=== PATIENT | male | born 1965 | race Caucasian/White ===

== ENCOUNTER 2025-02-16 18:30 | Inpatient (IN) | payer SELFPAY ==
[~2025-02-16] VITALS: Ht 193 cm; Wt 118.5 kg
[2025-02-16 18:33] VITALS: O2SAT 98
[2025-02-16 19:17] LABS: BASOPHILS % 0.7 % (0.0-2.0); EOSINOPHILS % 3.3 % (0.0-5.0); HEMATOCRIT. 37.9 % (42.0-52.0); HEMOGLOBIN. 12.9 g/dL (14.0-18.0); LYMPHOCYTES % 17.9 % (20.0-50.0); MEAN PLATELET VOLUME 8.9 fl (7.4-10.4); MONOCYTES % 6.3 % (2.0-8.0); NEUTROPHILS % 71.8 % (40.0-76.0); PLATELET 220 x1000/uL (130-400); RED BLOOD CELL COUNT 4.20 mill/uL (4.7-6.1); RED CELL DISTRIBUTION WIDTH 13.3 % (11.6-14.6)
[2025-02-16 19:32] LABS: CREATININE 0.9 mg/dL (0.6-1.3)
[2025-02-16 19:33] LABS: INR 1.0; UREA NITROGEN BLOOD 26 mg/dL (9-23)
[2025-02-16 19:34] LABS: ASPARTATE AMINOTRANSFERASE 30 IU/L (<34)
[2025-02-16 19:35] LABS: BILIRUBIN DIRECT 0.1 mg/dL (<=3.0); BILIRUBIN TOTAL 0.4 mg/dL (0.1-1.0); PROTEIN TOTAL 6.7 g/dL (6.0-8.3)
[2025-02-16 19:44] LABS: TROPONIN I HIGH SENSITIVITY 100 ng/L (3.0-53)
[2025-02-16] MEDS: CLOPIDOGREL 75MG TABLET PO ONE (20:35)
[2025-02-17] MEDS ORDERED: ACETAMINOPHEN 325MG TABLET PO PRN ×2 (00:15)
[2025-02-17] MEDS ORDERED: ONDANSETRON HCL 4MG/2ML INJ IV PRN (00:15)
[2025-02-17] MEDS ORDERED: CLONIDINE 0.1MG TABLET PO PRN (00:15)
[2025-02-17] MEDS ORDERED: DIPHENHYDRAMINE 50MG/ML VIAL IV PRN (00:15)
[2025-02-17] MEDS ORDERED: ZOLPIDEM TARTRATE 5MG TABLET PO PRN (00:15)
[2025-02-17 00:33] VITALS: BP 124/68; PULSE 72; RESP 18; TEMP 36.696
[2025-02-17] MEDS: SODIUM CHLORIDE 0.9% 3ML FLUSH IVF SCH (07:10)
[2025-02-17 08:00] VITALS: BP 135/85; PULSE 88; RESP 20; TEMP 36.1; O2SAT 98
[2025-02-17 08:19] LABS: TROPONIN I HIGH SENSITIVITY 5542 ng/L (3.0-53)
[2025-02-17] MEDS: CLOPIDOGREL 75MG TABLET PO SCH (08:26)
[2025-02-17] MEDS: AMLODIPINE 5MG TABLET PO SCH (08:27)
[2025-02-17] MEDS: ASPIRIN 81MG EC TABLET PO SCH (08:27)
[2025-02-17] MEDS ORDERED: [UNRECOGNIZED DRUG - OTHER] IM ONE (09:00)
[2025-02-17] MEDS: ENOXAPARIN 120MG/0.8ML SYR SUBCUT SCH (11:55)
[2025-02-17 12:00] VITALS: BP 131/81; PULSE 71; RESP 18; TEMP 36.2; O2SAT 97
[2025-02-17 12:41] LABS: TROPONIN I HIGH SENSITIVITY 3345 ng/L (3.0-53)
[2025-02-17 16:00] VITALS: BP 122/78; PULSE 79; RESP 17; TEMP 36.7; O2SAT 98
[2025-02-17 16:46] LABS: TROPONIN I HIGH SENSITIVITY 2703 ng/L (3.0-53)
[2025-02-17 20:00] VITALS: BP 147/92; PULSE 105; RESP 19; TEMP 36.6; O2SAT 96
[2025-02-18 00:02] VITALS: BP 136/92; PULSE 94; RESP 20; TEMP 36.4; O2SAT 95
[2025-02-18 04:00] VITALS: BP 133/91; PULSE 107; RESP 19; TEMP 36.8; O2SAT 93
[2025-02-18 08:00] VITALS: BP 133/89; PULSE 91; RESP 18; TEMP 36.1; O2SAT 95
[2025-02-18 08:03] LABS: TRIGLYCERIDE 308.0 mg/dL (0-150)
[2025-02-18 08:04] LABS: LDL CHOLESTEROL 113.0 mg/dL (5-100)
[2025-02-18] MEDS ORDERED: VERAPAMIL HCL 2.5 MG/1 ML 2ML VIAL IV ONE (08:18)
[2025-02-18] MEDS ORDERED: LIDOCAINE HCL 1% 20ML VIAL ONE (08:18)
[2025-02-18] MEDS ORDERED: IODIXANOL 320MG/ML 100 ML BOTTLE IV ONE (08:19)
[2025-02-18] MEDS ORDERED: DIPHENHYDRAMINE 50MG/ML VIAL ONE (08:52)
[2025-02-18] MEDS ORDERED: MIDAZOLAM HCL 2 MG/2 ML VIAL ONE (08:53)
[2025-02-18] MEDS ORDERED: FENTANYL CITRATE/PF 50MCG/ML 2ML VIAL ONE (08:53)
[2025-02-18] MEDS ORDERED: HEPARIN 1000 UNITS/ML 10ML ONE (08:55)
[2025-02-18] MEDS ORDERED: EPINEPHRINE 0.1MG/ML (1:10,000) 10ML SYR ONE (09:01)
[2025-02-18] MEDS ORDERED: ATROPINE SULFATE 1MG/10ML SYR ONE (09:02)
[2025-02-18] MEDS ORDERED: ATROPINE SULFATE 1MG/10ML SYR IV PRN (10:30)
[2025-02-18] MEDS ORDERED: ACETAMINOPHEN 325MG TABLET PO PRN (10:30)
[2025-02-18 12:00] VITALS: BP 116/83; PULSE 105; RESP 18; TEMP 36.1; O2SAT 100
[2025-02-18] MEDS: METOPROLOL SUCCINATE 25MG ER TABLET PO SCH (12:27)
[2025-02-18 16:00] VITALS: BP 120/84; PULSE 98; RESP 18; TEMP 36.2; O2SAT 97
[2025-02-18 20:00] VITALS: BP_SYST 110; BP_SYST 115; BP_DIAS 70; BP_DIAS 74; PULSE 60; PULSE 94; RESP 18; TEMP 36.4; TEMP 36.6; O2SAT 100; O2SAT 99
[2025-02-19] VITALS: BP 115/70; PULSE 97; RESP 18; TEMP 36.4; O2SAT 99
[2025-02-19 04:00] VITALS: BP 113/70; PULSE 91; RESP 18; TEMP 36.4; O2SAT 99
[2025-02-19 08:00] VITALS: BP 126/78; PULSE 98; RESP 18; TEMP 36.5; O2SAT 97
[2025-02-19 08:06] LABS: BASOPHILS % 0.7 % (0.0-2.0); EOSINOPHILS % 3.2 % (0.0-5.0); HEMATOCRIT. 40.9 % (42.0-52.0); HEMOGLOBIN. 14.0 g/dL (14.0-18.0); LYMPHOCYTES % 17.8 % (20.0-50.0); MEAN PLATELET VOLUME 9.1 fl (7.4-10.4); MONOCYTES % 7.5 % (2.0-8.0); NEUTROPHILS % 70.8 % (40.0-76.0); PLATELET 232 x1000/uL (130-400); RED BLOOD CELL COUNT 4.51 mill/uL (4.7-6.1); RED CELL DISTRIBUTION WIDTH 13.5 % (11.6-14.6)
[2025-02-19 08:24] LABS: CREATININE 0.8 mg/dL (0.6-1.3); UREA NITROGEN BLOOD 17 mg/dL (9-23)
[2025-02-19] MEDS: LOSARTAN 25 MG TABLET PO SCH (08:52)
[2025-02-19 12:00] VITALS: BP 135/89; PULSE 100; RESP 19; TEMP 36.6; O2SAT 97
[2025-02-19 16:00] VITALS: BP 126/80; PULSE 88; RESP 19; TEMP 36.6; O2SAT 97
[2025-02-19] MEDS ORDERED: METO25TA3 MT (17:26)
[2025-02-19] MEDS ORDERED: LOSA25TA26 MT (17:26)
[2025-02-19 17:29] VITALS: BP 126/80; PULSE 88; RESP 18; TEMP 97.7
== END 2025-02-19 19:12 | disposition home or self-care (01) | DRG 190 ==
LOC: ER 18:30 → EDBEDREQTM 20:17 → EDBEDREQ 20:17 → ENRESERV 22:04 → 8WST 22:50
PROVIDERS: ADMIT Internal Medicine; ATTEND Internal Medicine
PROC: 4A023N7 Measurement of Cardiac Sampling and Pressure, Left Heart, Percutaneous Approach (ICD-10-PCS; principal; 2025-02-18)
PROC: B211YZZ Fluoroscopy of Multiple Coronary Arteries using Other Contrast (ICD-10-PCS; 2025-02-18)
PROC: B215YZZ Fluoroscopy of Left Heart using Other Contrast (ICD-10-PCS; 2025-02-18)
DX: I21.4 Non-ST elevation (NSTEMI) myocardial infarction (principal); I50.21 Acute systolic (congestive) heart failure; E03.9 Hypothyroidism, unspecified; I25.10 Atherosclerotic heart disease of native coronary artery without angina pectoris; Z20.822 Contact with and (suspected) exposure to COVID-19; I51.81 Takotsubo syndrome; Z79.899 Other long term (current) drug therapy; J45.909 Unspecified asthma, uncomplicated; E66.9 Obesity, unspecified; J20.9 Acute bronchitis, unspecified; Z88.8 Allergy status to other drugs, medicaments and biological substances; Z68.31 Body mass index [BMI] 31.0-31.9, adult
CPT/HCPCS: 36415; 71045; 80048; 80061; 80076; 83735; 83880; 84484; 85025; 85379; 87426; 93005; 93306; 93458; 99291; A4606; C1769; C1887; C1893; J0461; J1200; J1644; J1650; J2003; J2250; J3010; J3490; Q9967